=== PATIENT | female | born 1965 | race African-American/Black ===

== ENCOUNTER 2024-07-08 12:28 | Emergency (ER) | payer MEDICAID ==
[~2024-07-08] VITALS: Ht 170.2 cm; Wt 100.0 kg
[2024-07-08 12:31] VITALS: TEMP 98.2; O2SAT 100
[2024-07-08 13:41] LABS: BASOPHILS % 0.2 % (0.0-2.0); DIFFERENTIAL COMMENT 0; EOSINOPHILS % 4.1 % (0.0-5.0); HEMATOCRIT. 40.6 % (36.0-48.0); HEMOGLOBIN. 13.5 g/dL (12.0-16.0); LYMPHOCYTES % 50.3 % (20.0-50.0); MEAN CORPUSCULAR HEMOGLOBIN 31.1 pg (28.0-32.0); MEAN CORPUSCULAR HGB CONC 33.3 g/dL (31.0-37.0); MEAN CORPUSCULAR VOLUME 93.4 fL (81.0-99.0); MEAN PLATELET VOLUME 9.5 fl (7.4-10.4); MONOCYTES % 11.7 % (2.0-8.0); NEUTROPHILS % 33.7 % (40.0-76.0); PLATELET 222 x1000/uL (130-400); RED BLOOD CELL COUNT 4.35 mill/uL (4.2-5.4); RED CELL DISTRIBUTION WIDTH 13.3 % (11.6-14.6); WHITE BLOOD COUNT 3.3 x1000/uL (4.5-11.0)
[2024-07-08 13:45] LABS: CHLORIDE 105 mEq/L (98-107); POTASSIUM 3.4 mEq/L (3.5-5.1); SODIUM 141 mEq/L (136-145)
[2024-07-08] MEDS ORDERED: MECLIZINE 25MG TABLET PO NR (13:45)
[2024-07-08] MEDS ORDERED: MECLIZINE 25MG TABLET PO ONE (13:45)
[2024-07-08] MEDS ORDERED: SODIUM CHLORIDE 0.9% 1,000 ML IV ONE (13:45)
[2024-07-08 13:46] LABS: CARBON DIOXIDE 29 mEq/L (21-32)
[2024-07-08 13:47] LABS: CALCIUM 9.3 mg/dL (8.7-10.4)
[2024-07-08 13:51] LABS: CREATININE 0.8 mg/dL (0.6-1.0)
[2024-07-08 13:52] LABS: GLUCOSE 120 mg/dL (70-105); UREA NITROGEN BLOOD 12 mg/dL (9-23)
[2024-07-08 14:01] LABS: TROPONIN I HIGH SENSITIVITY < 4 ng/L (3.0-34)
[2024-07-08 15:42] LABS: TROPONIN I HIGH SENSITIVITY < 4 ng/L (3.0-34)
[2024-07-08] MEDS ORDERED: MECL-299 MT (16:23)
[2024-07-08 16:44] VITALS: BP 108/62; PULSE 81; RESP 14; O2SAT 99
== END 2024-07-08 16:46 | disposition home or self-care (01) ==
LOC: ER 12:28
DX: R42 Dizziness and giddiness (principal); I10 Essential (primary) hypertension; Z88.0 Allergy status to penicillin
CPT/HCPCS: 99285; 70450; 71045; 80048; 85025; 84484; 36415; 93005; J7030